=== PATIENT | female | born 1985 | race Caucasian/White ===

== ENCOUNTER 2023-05-04 16:52 | Emergency (ER) | payer OTHER, SELFPAY ==
[2023-05-04 16:59] VITALS: BP 112/76; PULSE 105; RESP 20; TEMP 36.9; O2SAT 99; BMI 28.3
--- NOTE | 2023-05-04 17:10 | XR_ITS ---
The [address] [address] Patient Name: CLIFF ROBLERO MRN: [id number] date: 1985 Sex: F Assigned Patient Location: ED.MAIN Current Patient Location: ER Accession/Order Number: [id number] Exam Date: 05/04/2023 17:30 Report Date: 05/04/2023 18:21 At the request of: NANDO MANZANO Procedure: XR cervical spine 2-3V EXAM: XR cervical spine 2-3V HISTORY: atraumatic pain COMPARISON: None. TECHNIQUE: 3 view study FINDINGS: Vertebral bodies are normal in height. There is straightening of the usual cervical lordosis is viewed in lateral plane. There is mild disc space narrowing at C4-5 and C6-7 with early anterior osteophytosis at C4-5. Paravertebral soft tissues are unremarkable. XR/XR cervical spine 2-3V IMPRESSION: Early cervical spondylosis. Straightening of the usual cervical lordosis consistent with muscular spasm or positioning. Electronically authenticated by: Rachel ESPAÑA Date: 05/04/2023 18:21
--- NOTE | 2023-05-04 17:11 | ED_ITS ---
HPI - Neck Pain/Injury General Chief Complaint: Neck Pain/Injury Stated Complaint: Neck Pain Time Seen by Provider: 05/04/23 16:55 Source: patient Mode of arrival: walk-in Limitations: no limitations History of Present Illness HPI Narrative: 38-year-old female presents for pain to the left side of her neck for a month. There was no trauma. It started while she was at work. It hurts to turn her head towards the left. This in her arms. No headache. Related Data Allergies Allergy/AdvReac Type Severity Reaction Status Date / Time No Known Drug Allergies Allergy Verified 05/04/23 17:02 Review of Systems ROS Narrative A ten point review of systems is negative except as noted above. PFSH PFSH Social History Smoking status: Former smoker Exam Narrative Exam Narrative: Nurses note and vital signs reviewed and patient is not hypoxic. General: The patient appears uncomfortable. Her Head is turned towards the left. Skin: Warm, dry, no pallor noted. There is no rash noted. Head: Normocephalic, atraumatic Eye: Normal conjunctiva, no drainage Ears, Nose, Mouth, and Throat: oral mucosa is moist. Nares patent. neck is no mass bruise or rash or erythema. Cardiovascular: Regular Rate and Rhythm Respiratory: Patient is in no distress, no accessory muscle use, lungs are clear to auscultation, no wheezing, rales or rhonchi Back: non-tender GI: Normal bowel sounds, no tenderness to palpation, no masses appreciated. No rebound, guarding, or rigidity noted. Musculoskeletal: The patient has no evidence of calf tenderness, no pitting edema, symmetrical pulses noted bilaterally Neurological: A&O, normal speech Psychiatric: Cooperative Constitutional Vital Signs, click to edit/add: Last Vital Signs Temp 98.4 F 05/04/23 16:59 Pulse 105 H 05/04/23 16:59 Resp 20 05/04/23 16:59 BP 112/76 05/04/23 16:59 Pulse Ox 99 05/04/23 16:59 O2 Del Method Room Air 05/04/23 16:59 Course Vital Signs Vital signs: Vital Signs Temperature 98.4 F 05/04/23 16:59 Pulse Rate 105 H 05/04/23 16:59 Respiratory Rate 20 05/04/23 16:59 Blood Pressure 112/76 05/04/23 16:59 Pulse Oximetry 99 05/04/23 16:59 Oxygen Delivery Method Room Air 05/04/23 16:59 Temperature 98.4 F 05/04/23 16:59 Pulse Rate 105 H 05/04/23 16:59 Respiratory Rate 20 05/04/23 16:59 Blood Pressure 112/76 05/04/23 16:59 Pulse Oximetry 99 05/04/23 16:59 Oxygen Delivery Method Room Air 05/04/23 16:59 MDM - Neck Pain/Injury MDM Narrative Medical decision making narrative: x-rays per radiologist showed no acute findings and she'll be treated symptomatically. She'll follow-up with her PCP. Treatment diagnosis and follow- up were discussed thoroughly. Differential Diagnosis Differential diagnosis: Likely disc disorder of cervical region, whiplash injury to neck, cervical radiculopathy, torticollis and strain of neck muscle Lab Data Attestation: I reviewed the patient's lab results. Labs: Lab Results 05/04/23 Range/Units 17:10 Urine HCG, Qual Negative (NEGATIVE) Imaging Data cervical spine x-ray: Radiologist's impression: Procedure: XR cervical spine 2-3V EXAM: XR cervical spine 2-3V HISTORY: atraumatic pain COMPARISON: None. TECHNIQUE: 3 view study FINDINGS: Vertebral bodies are normal in height. There is straightening of the usual cervical lordosis is viewed in lateral plane. There is mild disc space narrowing at C4-5 and C6-7 with early anterior osteophytosis at C4-5. Paravertebral soft tissues are unremarkable. IMPRESSION: Early cervical spondylosis. Straightening of the usual cervical lordosis consistent with muscular spasm or positioning. Electronically authenticated by: Rachel ESPAÑA Date: 05/04/2023 18:21 Discharge Plan Discharge Chief Complaint: Neck Pain/Injury Clinical Impression: Neck pain Patient Disposition: Home, Self-Care Time of Disposition Decision: 18:31 Condition: Good Mode of Transportation: Private Vehicle Instructions: Neck Pain (ED) Stand Alone Forms: Portal Instructions Referrals: Physician,Non-Staff, MD [Primary Care Provider] - 1 week
[2023-05-04 17:31] LABS: HCG Qualitative Urine* NEGATIVE (NEGATIVE)
[2023-05-04] MEDS: KETOROLAC TROMETHAMINE 60 MG/2 ML VIAL IM (18:24)
[2023-05-04] MEDS: ORPHENADRINE 60 MG/ 2 ML VIAL IM (18:25)
== END 2023-05-04 18:42 | disposition home or self-care (01) ==
PROVIDERS: Emergency Provider Emergency Medicine
DX: M54.2 Cervicalgia (principal); Z87.891 Personal history of nicotine dependence
CPT/HCPCS: 72040; 84703; 96372; 99285